=== PATIENT | male | born 1940 | race Caucasian/White ===

== ENCOUNTER 2020-11-13 03:14 | Observation (INO) ==
[2020-11-13] MEDS ORDERED: Acetaminophen 325 MG TABLET PO PRN (07:12)
[2020-11-13] MEDS ORDERED: Naloxone 0.4 MG/ML INJ IVP PRN (07:12)
[2020-11-13] MEDS ORDERED: Perflutren Lipid Microsphere 1.3 ML in 0.9 % Sodium Chloride 8.7 ML IVP PRN (09:40)
[2020-11-13] MEDS ORDERED: 0.9 % Sodium Chloride 1,000 ML IVC SCH (09:45)
[2020-11-13] MEDS: Ampicillin/Sulbactam 3,000 MG in 0.9 % Sodium Chloride Mini Bag 100 ML IVPB SCH ×3 (12:26→23:40)
[2020-11-13] MEDS ORDERED: Dextrose Gel 15 GM/37.5 ML TUBE PO PRN ×2 (17:18)
[2020-11-13] MEDS ORDERED: D5% in Water 1,000 ML IVC PRN (17:18)
[2020-11-13] MEDS ORDERED: *HR* Dextrose 50 % in Water (Vial) 50 ML VIAL IVP PRN (17:18)
[2020-11-13] MEDS: Insulin LISPRO 300 UNITS/3 ML VIAL SUBQ SCH (21:22)
[2020-11-14] MEDS: Melatonin 3 MG TABLET PO PRN ×2 (00:23→20:56)
[2020-11-14] MEDS: Ampicillin/Sulbactam 3,000 MG in 0.9 % Sodium Chloride Mini Bag 100 ML IVPB SCH ×3 (05:52→19:11)
[2020-11-14] MEDS: Levothyroxine 25 MCG TABLET PO SCH (05:52)
[2020-11-14 06:45] LABS: Basophils % 0.3 %; Eosinophils # 0.3 K/mcL (0.0-0.6); Eosinophils % 3.6 %; Hematocrit 36.9 % (37.5-50.1); Immature Granulocytes % 0.2 % (0-4); Lymphocytes # 2.3 K/mcL (0.6-4.6); Lymphocytes % 24.4 %; Mean Corpuscular HGB Conc 32.5 g/dL (31.6-35.5); Mean Corpuscular Hemoglobin 28.1 pg (28.0-33.3); Mean Corpuscular Volume 86.4 fL (83.0-100.0); Mean Platelet Volume 9.7 fL (9.4-12.4); Monocytes # 0.6 K/mcL (0.0-1.3); Monocytes % 6.2 %; Neutrophils # 6.1 K/mcL (1.6-8.9); Platelet Count 158 K/mcL (140-400); Red Blood Count 4.27 M/mcL (4.19-5.50); Red Cell Distribution Width 14.6 % (11.5-14.5); Segmented Neutrophils % 65.3 %; White Blood Count 9.3 K/mcL (4.3-11.1)
[2020-11-14 07:09] LABS: Calcium 8.7 mg/dL (8.6-10.3); Potassium 4.1 mEq/L (3.5-5.1)
[2020-11-14] MEDS: Insulin LISPRO 300 UNITS/3 ML VIAL SUBQ SCH ×4 (07:53→20:54)
[2020-11-14] MEDS: Furosemide 20 MG TABLET PO SCH (07:53)
[2020-11-14] MEDS: amLODIPine 5 MG TABLET PO SCH (07:53)
[2020-11-14] MEDS: lisinopriL 5 MG TABLET PO SCH (07:53)
[2020-11-14] MEDS: *HR* Enoxaparin 40 MG/0.4 ML SYRINGE SQ SCH (12:26)
[2020-11-14] MEDS ORDERED: QUEtiapine Fumarate 100 MG TABLET PO SCH (21:00)
[2020-11-15] MEDS: Ampicillin/Sulbactam 3,000 MG in 0.9 % Sodium Chloride Mini Bag 100 ML IVPB SCH ×2 (00:14→05:57)
[2020-11-15] MEDS: Levothyroxine 25 MCG TABLET PO SCH (05:57)
[2020-11-15] MEDS: Insulin LISPRO 300 UNITS/3 ML VIAL SUBQ SCH (07:55)
[2020-11-15] MEDS: *HR* Enoxaparin 40 MG/0.4 ML SYRINGE SQ SCH (08:36)
[2020-11-15] MEDS: lisinopriL 5 MG TABLET PO SCH (08:37)
[2020-11-15] MEDS: Furosemide 20 MG TABLET PO SCH (08:37)
[2020-11-15] MEDS: amLODIPine 5 MG TABLET PO SCH (08:37)
[2020-11-15 11:02] VITALS: BP 107/60; PULSE 67; TEMP 97.4; O2SAT 96
== END 2020-11-15 12:55 | disposition home health service (06) ==
LOC: 2ANU → SUATTDRO 05:57
PROVIDERS: ADMIT Student in an Organized Health Care Education/Training Program; ATTEND Hospitalist